=== PATIENT | male | born 1995 | race African-American/Black ===

== ENCOUNTER 2019-11-19 22:15 | Emergency (ER) | payer SELFPAY ==
[~2019-11-19] VITALS: Ht 172.7 cm; Wt 72.6 kg
--- NOTE | 2019-11-19 22:32 | NUR ---
Patient ambulating with steady gait. A&O x4. c/o SOB. patient states that he has hx of PNA that was treated recently. patient states he finished the atb tx. Breathing even and unlabored. O2 saturation at 97% on RA. no cough noted. Speech is clear and able to make needs known / follow commands. denies any / GI distress.
--- NOTE | 2019-11-19 22:45 | NUR ---
Dr. Jimenez at bedside for MSE
--- NOTE | 2019-11-20 00:48 | NUR ---
Patient discharged to home in stable conditon. Written and verbal after care instructions given. Patient verbalizes understanding of instructions. Patient ambulating with steady gait
[2019-11-20 00:49] VITALS: BP 128/63
== END 2019-11-20 00:48 | disposition home or self-care (01) ==
LOC: ER 22:15
DX: J40 Bronchitis, not specified as acute or chronic (principal); F17.200 Nicotine dependence, unspecified, uncomplicated; F12.10 Cannabis abuse, uncomplicated
CPT/HCPCS: 71046; A4663